=== PATIENT | female | born 1965 ===

== ENCOUNTER 2019-05-24 18:59 | Observation (INO) | payer OTHER ==
[~2019-05-24] VITALS: Ht 170.2 cm; Wt 60.3 kg
[2019-05-24 20:03] LABS: BASOPHILS ABSOLUTE AUTO 0.05 K/mm3 (0.00-0.23); BASOPHILS PERCENT AUTO 1 % (0-2); EOSINOPHILS ABSOLUTE AUTO 0.04 K/mm3 (0.00-0.68); EOSINOPHILS PERCENT AUTO 1 % (0-6); Hematocrit 37.4 % (33.0-51.0); Hemoglobin 12.6 g/dL (11.5-16.0); IMMATURE GRAN ABSOLUTE AUTO 0.01 K/mm3 (0.00-0.10); IMMATURE GRAN PERCENT AUTO 0 % (0-1); LYMPHOCYTES ABSOLUTE AUTO 0.99 K/mm3 (0.84-5.20); LYMPHOCYTES PERCENT AUTO 17 % (21-46); MONOCYTES ABSOLUTE AUTO 0.42 K/mm3 (0.16-1.47); MONOCYTES PERCENT AUTO 7 % (4-13); Mean Corpuscular HGB 30.1 pg (26.0-34.0); Mean Corpuscular HGB Conc 33.7 g/dL (31.5-36.5); Mean Corpuscular Volume 89 fL (80-100); Mean Platelet Volume 10.4 fL (9.1-12.4); NEUTROPHILS ABSOLUTE AUTO 4.38 K/mm3 (1.96-9.15); NEUTROPHILS PERCENT AUTO 74 % (41-73); Platelet Count 230 K/mm3 (150-400); RDW Coefficient Variation 12.1 % (11.7-14.2); RDW Standard Deviation 39.6 fL (35.1-46.3); Red Blood Cell Count 4.19 M/mm3 (3.80-5.20); White Blood Cell Count 5.89 K/mm3 (4.00-11.30)
[2019-05-24 20:33] LABS: Alanine Aminotransfer (ALT/SGP 77 U/L (12-78); Albumin, Blood 3.5 g/dL (3.4-5.0); Alk Phos 114 U/L (50-136); Anion Gap 4 mmol/L (6-16); Aspartate Aminotrans (AST/SGOT 42 U/L (12-37); Bilirubin, Total 0.6 mg/dL (0.1-1.0); Blood Urea Nitrogen 16 mg/dL (8-24); Bun/Creatinine Ratio 23.8 (12.0-20.0); CO2, Blood 24 mmol/L (21-32); Calcium, Blood 8.5 mg/dL (8.5-10.1); Chloride, Blood 111 mmol/L (98-108); Creatinine, Blood 0.67 mg/dL (0.40-1.00); Globulin, Blood 3.5 g/dL (2.2-4.0); Glomerular Filtration Rate >60 (60-); Glucose, Blood 103 mg/dL (70-99); Sodium, Blood 139 mmol/L (136-145)
--- NOTE | 2019-05-24 23:35 | NUR ---
6621 ADMIT: PT ARRIVES FROM [facility] VIA GOURNEY AND TRANSFERS SELF TO BED; PT UP FOR BRP AND CHANGES INTO PT GOWN. PT DENIES DIZZINESS WITH AMBULATION AND BRP; CONTINUED MILD NAUSEA WITH MOVEMENT. PT ORIENTED TO ROOM, BED, CALL SYSTEM AND CALL LIGHT PLACED INREACH.
--- NOTE | 2019-05-25 05:02 | NUR ---
0502: POISON CONTROL OF [place], [place] CALLS PRIMARY RN FOR UPDATE ON PT STATUS. PT PAIN AND NAUSEA WELL CONTROLLED WITH IV MEDICATION X1 SINCE ADMIT. VSS, VOIDING CLEAR YELLOW AND ON ROOM AIR. WOUND APPEARS RED AND SWOLLEN BUT WITHOUT DRAINAGE. CONTINUE TO MONITOR AND RECORD PHOTO DOCUMENTATION OF WOUND SITE.
--- NOTE | 2019-05-25 19:23 | NUR ---
SHIFT SUMMARY PT A&O T/O SHIFT WITH VSS. HR BARRY. POISON CONTROL CALLED FOR UPDATE THIS SHIFT. NO PROGRESSION WITH REDNESS AROUND BITE AREA. APPETITE POOR DUE TO NAUSEA; DID NOT REQUIRE COVERAGE. MEDICATED PATIENT PER EMAR FOR PAIN. ALSO GIVEN ICE PACK AND KPAD. PT REPORTS FEELING MORE SLEEPY THAN NORMAL, DISCUSSED WITH DOCTOR. SBA TO BATHROOM.
--- NOTE | 2019-05-26 07:56 | NUR ---
SUMMARY PT SLEPT QUIETLY LAST NIGHT. NO ACUTE CHANGES. K PAD FOR MUSCLE ACHES. NO C/O NAUSEA.
--- NOTE | 2019-05-26 11:10 | NUR ---
KENDRA Cook/ POSION CONTROL CALLED FOR UPDATE ON PT. NO NEW RECOMMENDATIONS AT THIS TIME.
[2019-05-26] MEDS ORDERED: PROM25 PO (12:49)
[2019-05-26] MEDS ORDERED: TYLENOL325 MG PO (14:32)
--- NOTE | 2019-05-26 16:09 | NUR ---
DISCHARGE SUMMARY PT DISCHARGED AT 1520 TODAY WITH FAMILY. DISCHARGED INSTRUCTIONS AND PERSONAL ITEMS PROVIDED TO PATIENT/FAMILY. PAIN CONTROLLED PER EMAR, A&O, VSS, AND AMBULATING IND. PT/FAMILY VERBALIZED UNDERSTANDING AND DECLINED ANY CONCERNS. REDNESS ON RIGHT SHOULDER R/T SPIDER BITE HAS DECREASED DURING SHIFT. PT DENIED PAIN. ABLE TO TOLERATE REGULAR DIET AND REPORTED DECREASED IN NAUSEA.
== END 2019-05-26 15:30 | disposition home or self-care (01) ==
LOC: ER 18:59 → SURS 19:00
PROVIDERS: Physician Assistant; ADMIT Internal Medicine
DX: T63.311A Toxic effect of venom of black widow spider, accidental (unintentional), initial encounter (principal); Z23 Encounter for immunization
CPT/HCPCS: 36415; 80053; 83690; 85025; 90471; 90714; 96361; 96372; 96374; 96375; 96376; 99284-25; A9270; G0378; J1170; J1650; J2405; J2550; J7030; J7120

== ENCOUNTER → 2019-10-20 | Outpatient (CLI) | payer OTHER ==
[~2019-10-20] MED LIST: PROM25 PO; TYLENOL325 MG PO
[2019-10-20 18:36] LABS: BASOPHILS ABSOLUTE AUTO 0.05 K/mm3 (0.00-0.23); BASOPHILS PERCENT AUTO 1 % (0-2); EOSINOPHILS ABSOLUTE AUTO 0.01 K/mm3 (0.00-0.68); EOSINOPHILS PERCENT AUTO 0 % (0-6); Hematocrit 41.2 % (33.0-51.0); Hemoglobin 13.6 g/dL (11.5-16.0); IMMATURE GRAN ABSOLUTE AUTO 0.02 K/mm3 (0.00-0.10); IMMATURE GRAN PERCENT AUTO 0 % (0-1); LYMPHOCYTES ABSOLUTE AUTO 0.84 K/mm3 (0.84-5.20); LYMPHOCYTES PERCENT AUTO 10 % (21-46); MONOCYTES ABSOLUTE AUTO 0.32 K/mm3 (0.16-1.47); MONOCYTES PERCENT AUTO 4 % (4-13); Mean Corpuscular HGB 28.9 pg (26.0-34.0); Mean Corpuscular Volume 88 fL (80-100); Mean Platelet Volume 11.2 fL (9.1-12.4); NEUTROPHILS ABSOLUTE AUTO 7.17 K/mm3 (1.96-9.15); NEUTROPHILS PERCENT AUTO 85 % (41-73); Platelet Count 284 K/mm3 (150-400); RDW Coefficient Variation 11.8 % (11.7-14.2); RDW Standard Deviation 37.9 fL (35.1-46.3); Red Blood Cell Count 4.71 M/mm3 (3.80-5.20); White Blood Cell Count 8.41 K/mm3 (4.00-11.30)
[2019-10-20 19:00] LABS: Alanine Aminotransfer (ALT/SGP 58 U/L (12-78); Albumin, Blood 3.9 g/dL (3.4-5.0); Alk Phos 145 U/L (50-136); Amylase, Blood 35 U/L (25-115); Anion Gap 5 mmol/L (6-16); Aspartate Aminotrans (AST/SGOT 23 U/L (12-37); Bilirubin, Total 0.5 mg/dL (0.1-1.0); Blood Urea Nitrogen 12 mg/dL (8-24); Bun/Creatinine Ratio 26.1 (12.0-20.0); CO2, Blood 27 mmol/L (21-32); Calcium, Blood 9.5 mg/dL (8.5-10.1); Chloride, Blood 105 mmol/L (98-108); Creatinine, Blood 0.46 mg/dL (0.40-1.00); Globulin, Blood 3.9 g/dL (2.2-4.0); Glomerular Filtration Rate >60 (60-); Glucose, Blood 142 mg/dL (70-99); Sodium, Blood 137 mmol/L (136-145); Total Protein, Blood 7.8 g/dL (6.4-8.2)
== END | disposition home or self-care (01) ==
LOC: LAB SHORT 17:11 → LAB 17:11
PROVIDERS: Emergency Medicine
DX: R10.84 Generalized abdominal pain (principal); R11.0 Nausea
CPT/HCPCS: 80053; 82150; 83690; 85025

== ENCOUNTER → 2020-10-23 | Outpatient (CLI) | payer OTHER | END | disposition home or self-care (01) | LOC: LAB SHORT 08:08 → PLD 08:08 | DX: D22.5 Melanocytic nevi of trunk (principal) | CPT/HCPCS: 88305 ==

== ENCOUNTER → 2021-12-02 | Outpatient (CLI) | payer OTHER ==
[2021-12-02 16:16] LABS: BASOPHILS ABSOLUTE AUTO 0.06 K/mm3 (0.00-0.23); BASOPHILS PERCENT AUTO 2 % (0-2); EOSINOPHILS ABSOLUTE AUTO 0.06 K/mm3 (0.00-0.68); EOSINOPHILS PERCENT AUTO 2 % (0-6); Hematocrit 40.3 % (33.0-51.0); Hemoglobin 13.5 g/dL (11.5-16.0); IMMATURE GRAN ABSOLUTE AUTO 0.01 K/mm3 (0.00-0.10); IMMATURE GRAN PERCENT AUTO 0 % (0-1); LYMPHOCYTES ABSOLUTE AUTO 1.03 K/mm3 (0.84-5.20); LYMPHOCYTES PERCENT AUTO 31 % (21-46); MONOCYTES ABSOLUTE AUTO 0.45 K/mm3 (0.16-1.47); MONOCYTES PERCENT AUTO 14 % (4-13); Mean Corpuscular HGB 29.3 pg (26.0-34.0); Mean Corpuscular HGB Conc 33.5 g/dL (31.5-36.5); Mean Corpuscular Volume 88 fL (80-100); Mean Platelet Volume 11.4 fL (9.1-12.4); NEUTROPHILS ABSOLUTE AUTO 1.71 K/mm3 (1.96-9.15); NEUTROPHILS PERCENT AUTO 52 % (41-73); Platelet Count 250 K/mm3 (150-400); RDW Coefficient Variation 13.2 % (11.7-14.2); RDW Standard Deviation 42.6 fL (35.1-46.3); White Blood Cell Count 3.32 K/mm3 (4.00-11.30)
[2021-12-02 16:56] LABS: Albumin, Blood 3.7 g/dL (3.4-5.0); Albumin/Globulin Ratio 1.2 (0.8-1.8); Bilirubin, Direct 0.2 mg/dL (0.0-0.3); Bilirubin, Indirect 0.5 mg/dL (0.1-0.7); Bilirubin, Total 0.7 mg/dL (0.1-1.0); Globulin, Blood 3.2 g/dL (2.2-4.0); Total Protein, Blood 6.9 g/dL (6.4-8.2)
== END | disposition home or self-care (01) ==
LOC: LAB SHORT 14:10
PROVIDERS: Hospitalist
DX: D72.819 Decreased white blood cell count, unspecified (principal); R74.8 Abnormal levels of other serum enzymes
CPT/HCPCS: 80076; 85025

== ENCOUNTER → 2022-10-01 | Outpatient (CLI) | payer OTHER ==
[2022-10-01 15:48] LABS: BASOPHILS ABSOLUTE AUTO 0.06 K/mm3 (0.00-0.23); BASOPHILS PERCENT AUTO 1 % (0-2); EOSINOPHILS ABSOLUTE AUTO 0.06 K/mm3 (0.00-0.68); EOSINOPHILS PERCENT AUTO 1 % (0-6); Hemoglobin 14.3 g/dL (11.5-16.0); IMMATURE GRAN ABSOLUTE AUTO 0.01 K/mm3 (0.00-0.10); IMMATURE GRAN PERCENT AUTO 0 % (0-1); LYMPHOCYTES ABSOLUTE AUTO 1.27 K/mm3 (0.84-5.20); LYMPHOCYTES PERCENT AUTO 25 % (21-46); MONOCYTES ABSOLUTE AUTO 0.48 K/mm3 (0.16-1.47); MONOCYTES PERCENT AUTO 10 % (4-13); Mean Corpuscular HGB 29.7 pg (26.0-34.0); Mean Corpuscular Volume 87 fL (80-100); Mean Platelet Volume 10.9 fL (9.1-12.4); NEUTROPHILS ABSOLUTE AUTO 3.17 K/mm3 (1.96-9.15); NEUTROPHILS PERCENT AUTO 63 % (41-73); Platelet Count 287 K/mm3 (150-400); RDW Coefficient Variation 12.6 % (11.7-14.2); RDW Standard Deviation 40.2 fL (35.1-46.3); Red Blood Cell Count 4.82 M/mm3 (3.80-5.20); White Blood Cell Count 5.05 K/mm3 (4.00-11.30)
[2022-10-01 17:42] LABS: Albumin, Blood 4.1 g/dL (3.4-5.0); Albumin/Globulin Ratio 1.2 (0.8-1.8); Bilirubin, Total 0.8 mg/dL (0.1-1.0); Bun/Creatinine Ratio 18.6 (12.0-20.0); Calcium, Blood 9.5 mg/dL (8.5-10.1); Creatinine, Blood 0.75 mg/dL (0.40-1.00); Globulin, Blood 3.5 g/dL (2.2-4.0); Potassium, Blood 4.7 mmol/L (3.5-5.5); Total Protein, Blood 7.6 g/dL (6.4-8.2)
== END | disposition home or self-care (01) ==
LOC: LAB SHORT 11:20
PROVIDERS: Hospitalist
DX: D70.9 Neutropenia, unspecified (principal); R74.01 Elevation of levels of liver transaminase levels
CPT/HCPCS: 80053; 85025; 85651

== ENCOUNTER 2024-10-06 22:09 | Emergency (ER) | payer OTHER ==
[~2024-10-06] VITALS: Ht 172.7 cm; Wt 61.2 kg
[2024-10-06 22:20] VITALS: BP 133/89
[2024-10-07] MEDS ORDERED: ASPERFLEX1 EACH TOP (00:39)
[2024-10-07] MEDS ORDERED: Ketorolac Tromethamine 15mg Vial IM ONE (00:40)
[2024-10-07] MEDS ORDERED: Lidocaine 4% 1 Patch TOP ONE (00:40)
== END 2024-10-07 00:54 | disposition home or self-care (01) ==
LOC: ER 22:09
DX: T14.90XA Injury, unspecified, initial encounter (principal); V43.52XA Car driver injured in collision with other type car in traffic accident, initial encounter
CPT/HCPCS: 96372; 99283; A9270; J1885

== ENCOUNTER → 2025-01-04 | Outpatient (CLI) | payer OTHER ==
[~2025-01-04] MED LIST changes: +ASPERFLEX1 EACH TOP
== END ==
LOC: LAB 09:05 → LAB SHORT 09:05
DX: R51.9 Headache, unspecified (principal)
CPT/HCPCS: 85651